=== PATIENT | male | born 2000 | race African-American/Black ===

== ENCOUNTER → 2019-09-03 | Outpatient (CLI) | payer OTHER | LOC: COL.RAD 09:00 → EDBD 09:00 → COL.RAD 09:01 | DX: M85.30 Osteitis condensans, unspecified site (principal) | CPT/HCPCS: J3301; Q9967 ==

== ENCOUNTER → 2020-06-27 | Outpatient (CLI) | payer OTHER | LOC: COL.RAD 13:05 | DX: S43.431A Superior glenoid labrum lesion of right shoulder, initial encounter (principal); M24.811 Other specific joint derangements of right shoulder, not elsewhere classified | CPT/HCPCS: A9585; Q9967 ==